=== PATIENT | female | born 1950 | race Caucasian/White ===

== ENCOUNTER 2020-05-12 15:07 | Observation (INO) | payer MEDICARE, BC ==
[~2020-05-12] VITALS: Ht 152.4 cm; Wt 64.7 kg
[~2020-05-12 15:07] MED LIST: AMBIEN CR12.5 M1 PO; AMBIEN CR12.5 MG PO; AMBIEN10 MG OR; AMBIEN5 MG PO; ATORVASTATI80 MG/TAB PO; BENADRYL 25MG C25 MG PO; BUMEX1 M1; BYSTOLIC5 MG; BYSTOLIC5 MG PO; CALCIUM500 M2 PO; CARAFATE PO; CIPROFLOXACN500 MG PO; CITALOPRAM20 MG PO; COMPAZINE10 MG PO; COUMADIN4 MG PO; DEXILANT60 MG PO; EQ IBUPROFEN200 MG OR; FENTANYL50 MCG/HR TD; FLEXERIL PO; FLEXERIL5 M1 PO; HYDROCHLOROT12.5 M1; HYDROCHLOROTH12.5 MG OR; HYDROCODONE/ACE1 TAB PO; HYDROMORPHON8 MG OR; IBUPROFEN200 MG PO; IRON45 MG; LABETALOL200 MG PO; LIPITOR20 M1 PO; LIPITOR20 MG PO; LOPRESSOR50 M1 PO; LORTAB 1010 MG PO; LOSARTAN POT50 MG PO; LOSARTAN POTASS25 MG PO; MEDDOSEPAK PO; METOPROL TAR25 MG PO; MIRTAZAPINE15 M1 PO; MOTRIN IB200 MG PO; MULTI VIT PO; NORCO1 TAB PO; NORVASC5 M1 PO; OXYCODONE10 M1 PO; PHENERGAN25 MG RE; POTASSIMIN75 MG PO; PREMPRO2.5 PO; PRILOSEC20 MG PO; PRILOSEC20 MG/CAP PO; PRILOSEC40 MG PO; PROTONIX40 M2 PO; PROTONIX40 MG PO; REMERON15 MG PO; REMERON45 MG PO; RESTORIL30 MG; RESTORIL30 MG PO; SEROQUEL200 MG PO; SEROQUEL400 MG PO; SINGULAIR PO; TEMAZEPAM30 MG PO; TESSALON PER100 MG PO; TRAMADOL HCL50 MG PO; TRAZODONE50 MG PO; VALIUM5 MG PO; VICODIN1 TA1; VITAMIN D5000 UNIT; ZANTAC150 M1 PO; ZOFRAN ODT4 MG PO; ZOLPIDEM ER12.5 MG PO; [UNRECOGNIZED DRUG - CODE] PO; [UNRECOGNIZED DRUG - REMARK]
--- NOTE | 2020-05-12 15:07 | NUR ---
PPATIENT TO ROOM VIA EMS SMELLS OF ETOH STATES SUICIDAL IDEATIONS TO MD AT BEDSIDE. PATIENT OBTUNDED BUT AROUSABLE AND ANSWERS QUESTIONS CORRECTLY.
--- NOTE | 2020-05-12 15:15 | NUR ---
MEDICAL HOLD PLACED ON [facility] ACT AT THIS TIME BY DR NOLASCO
--- NOTE | 2020-05-12 15:40 | NUR ---
PATIENT UNABLE TO CONFIRM MEDICATIONS DUE TO MENTAL STATE PHARMACY CONSULT PLACED
[2020-05-12 15:47] LABS: HEMOGLOBIN 10.4 g/dl (12.0-16.0); IMMATURE GRANULOCYTES 0.3 % (0.0-5.0); MEAN CELL VOLUME 73.1 fL CALC (80.0-100.0); MEAN CORPUSCULAR HGB 21.7 pG CALC (26.0-32.0); MEAN CORPUSCULAR HGB CONC 29.7 g/dL CAL (32.0-36.0); NEUT# 3.95 thou/uL (2.00-7.15); RED BLOOD COUNT 4.79 mill/uL (4.20-5.60); RED CELL DISTRI WIDTH 20.8 % (11.5-15.5)
[2020-05-12 15:48] LABS: URINE BILIRUBIN - DIPSTICK NEGATIVE (NEGATIVE); URINE BLOOD DIPSTICK NEGATIVE (NEGATIVE); URINE COLOR YELLOW; URINE GLUCOSE - DIPSTICK NEGATIVE (NEGATIVE); URINE KETONE NEGATIVE (NEGATIVE); URINE LEUK ESTERASE NEGATIVE (NEGATIVE); URINE NITRITE - DIPSTICK NEGATIVE (Negative); URINE PROTEIN - DIPSTICK NEGATIVE (NEG-TRACE); URINE UROBILINOGEN - DIPSTICK 0.2 E.U./dL (0.2)
[2020-05-12 16:20] LABS: ACT PARTIAL THROMBO TIME 21.7 SECONDS (20.0-32.5); PROTHROMBIN TIME 9.9 SECONDS (9.0-12.5)
[2020-05-12 16:21] LABS: ALKALINE PHOSPHATASE 83 u/l (38-126); BUN 9 mg/dL (8-23); BUN/CREATININE RATIO 19 (12-20 (CALC)); CARBON DIOXIDE 21 mmol/l (22-30); CHLORIDE 113 mmol/l (95-108); CREATININE 0.5 mg/dL (0.5-1.0); GFR > 60 ML/MIN (>=60 (CALC)); GFR FOR AFR.AMER. > 60 ML/MIN (>=60 (CALC)); LIPASE 29 u/l (23-300); POTASSIUM 4.2 mmol/l (3.5-5.1); SGOT/AST 24 u/l (9-36)
[2020-05-12 16:32] LABS: ALBUMIN 4.2 g/dL (3.2-5.0); ANION GAP 18 (6-22 (CALC)); BILIRUBIN, TOTAL 0.2 mg/dL (0.0-1.4); ETHYL ALCOHOL 372 mg/dl (0-30); SODIUM 148 mmol/l (137-146); TOTAL PROTEIN 6.5 g/dL (6.3-8.2)
--- NOTE | 2020-05-12 16:40 | NUR ---
PATIENT RESTING WITH SITTER. PPATIENT STATING JUST KILL ME I WANT TO NOTIFIEDD
--- NOTE | 2020-05-12 17:20 | NUR ---
SBAR PRINTED TO FLOOR
--- NOTE | 2020-05-12 17:40 | NUR ---
PATIENT RESTING SITTER AT BEDSIDE PATIENT STILL STATING SUICIDAL IDEATIONS
--- NOTE | 2020-05-12 18:58 | NUR ---
W/PP/D SKIN NSR NO ECTOPY NO ST T CHANGES.A/OX3
--- NOTE | 2020-05-12 19:07 | NUR ---
REPORT CALLED TO TOMÁS IN THE ICU
--- NOTE | 2020-05-12 19:15 | NUR ---
PT TRANSPORTED TO [facility] VIA STRETCHER IN STABLE CONDITION
--- NOTE | 2020-05-12 19:28 | NUR ---
pt arrived with emesis bag. has dry heaves & requests water. request denied.
--- NOTE | 2020-05-12 19:28 | NUR ---
76 yr old female admitted icu5 per stretcher from er. hussein act cont. sitter with pt. transferred to bed x2 aqssists. bed weight obtained. pt drowsy. o2 cont per nc. desk monitor shows sinus rhythm hr 72. #20 lfa. ivf began as ordered. pt oriented to name only. history obtained per er & old record. oriented to room. fall precautions initiated.
[2020-05-12 19:30] VITALS: BP 142/73
[2020-05-12 20:00] VITALS: BP 119/72
[2020-05-12 20:15] VITALS: BP 122/57
[2020-05-12 20:30] VITALS: BP 113/72
--- NOTE | 2020-05-12 22:00 | NUR ---
awake. nad. pt has dry heaves, no emesis then requests water. request denied.
--- NOTE | 2020-05-12 23:40 | NUR ---
wilfred from poison control call this brief writer. updated on pts condition. suggested banana bag for pt d/t blood alcohol.
[2020-05-13 00:01] VITALS: BP 146/69
[2020-05-13 02:00] VITALS: BP 160/64
--- NOTE | 2020-05-13 02:00 | NUR ---
awake. requested water then asked for emesis bag. request denied. no emesis or dry heaves @ present. sitter remains @ bedside.
--- NOTE | 2020-05-13 03:00 | NUR ---
up to bsc assisted by sitter then back to bed. yudith well. no n/v or dry heaves. small glass ice water given.
--- NOTE | 2020-05-13 04:52 | NUR ---
lab here. blood drawn.
[2020-05-13 05:34] LABS: HEMATOCRIT 30.8 % (37.0-47.0); HEMOGLOBIN 9.4 g/dl (12.0-16.0); IMMATURE GRANULOCYTES 0.4 % (0.0-5.0); MEAN CELL VOLUME 72.8 fL CALC (80.0-100.0); MEAN CORPUSCULAR HGB 22.2 pG CALC (26.0-32.0); MEAN CORPUSCULAR HGB CONC 30.5 g/dL CAL (32.0-36.0); NEUT# 6.38 thou/uL (2.00-7.15); RED BLOOD COUNT 4.23 mill/uL (4.20-5.60); RED CELL DISTRI WIDTH 20.4 % (11.5-15.5)
[2020-05-13 05:45] LABS: ALBUMIN 3.9 g/dL (3.2-5.0); ALKALINE PHOSPHATASE 72 u/l (38-126); ANION GAP 17 (6-22 (CALC)); BUN 11 mg/dL (8-23); BUN/CREATININE RATIO 29 (12-20 (CALC)); CARBON DIOXIDE 20 mmol/l (22-30); CHLORIDE 111 mmol/l (95-108); CREATININE 0.4 mg/dL (0.5-1.0); GFR > 60 ML/MIN (>=60 (CALC)); GFR FOR AFR.AMER. > 60 ML/MIN (>=60 (CALC)); POTASSIUM 4.4 mmol/l (3.5-5.1); SGOT/AST 27 u/l (9-36); SODIUM 144 mmol/l (137-146); TOTAL PROTEIN 5.8 g/dL (6.3-8.2)
[2020-05-13 05:48] LABS: BILIRUBIN, TOTAL 0.3 mg/dL (0.0-1.4)
[2020-05-13 06:00] VITALS: BP 144/70
--- NOTE | 2020-05-13 06:00 | NUR ---
slept poor this shift. has had few small naps tonight. sitter remains @ bedside.
--- NOTE | 2020-05-13 07:20 | NUR ---
ASSESSMENT IS COMPLETED: IV SITE IS FREE FROM REDNESS OR EDEMA. HR IS REG,PULSE ARE STRONG X4, ABD IS SOFT WITH ACTIVE BS. BREATH SOUNDS ARE CLEAR,BILATERALLY. NO C/O SOB. PT INQUIRED ABOUT PERSONAL BELONGINGS. INFORMED ABOUT COMING WITH AMBULANCE.
--- NOTE | 2020-05-13 08:19 | NUR ---
PT VOIDED 150 ML OF URINE. BLADDER SCAN OF [id number]
--- NOTE | 2020-05-13 08:29 | NUR ---
SISTER CALLING AND INQUIRED. ABOUT PT. IN 2017 DID THE SAME THING. ADDICTED TO [facility]. FOR YEARS. SCHEDULED MEDS. CARE GIVERS. DRANK VODKA. AND TOOK PILLS. BENADRYL FOR ALLEGERIES, SUDAFED. AND OXYCODONE. FAMILY TOOK THE EXTRA 4 PILLS OUT OF THE PACKAGE SO THE PT WOULD NOT TAKE THEM. INCONTINENT OF URINE YESTERDAY, FAMILY CLEANED HER UP. PER SISTER, PTS PASSED 12 YEARS AGO.
--- NOTE | 2020-05-13 08:51 | NUR ---
NEW ORDER FOR A GUERRERO TO BE PLACED DUE TO RETENTION OF UA.
[2020-05-13 09:00] VITALS: BP 161/82
--- NOTE | 2020-05-13 09:55 | NUR ---
#16 [place] GUERRERO PLACED BY Gume NESBITT LPN AND KENNETH ZARATE PT TOELRATED WELL.
[2020-05-13] MEDS ORDERED: LOSARTAN POTASS25 MG PO (10:20)
[2020-05-13] MEDS ORDERED: LABETALOL200 MG PO (10:20)
[2020-05-13] MEDS ORDERED: NORVASC5 M1 PO (10:21)
[2020-05-13] MEDS ORDERED: OXYCODONE10 M1 PO (10:24)
[2020-05-13] MEDS ORDERED: LIPITOR20 M1 PO (10:24)
[2020-05-13 11:00] VITALS: BP 188/81
--- NOTE | 2020-05-13 11:29 | NUR ---
DR GUTHRIE IN TO VISIT WITH PT. IS NOW SPEAKING WITH THE SISTER.
--- NOTE | 2020-05-13 11:37 | NUR ---
PLANS ARE TO SEND PT TO A PSYCH FACILITY. TO ASSIST WITH MEDICATIONS
--- NOTE | 2020-05-13 12:00 | NUR ---
PT IS RELAXING IN BED
--- NOTE | 2020-05-13 12:35 | NUR ---
PT C/O HAVING LOOSSE STOOLS. WOULD LIKE SOMETHING FOR IT. INFORMED BY DR GUTHRIE DIDN'T WANT TO GIVE ANYTHING RIGHT NOW.
[2020-05-13 13:00] VITALS: BP 164/91
--- NOTE | 2020-05-13 14:16 | NUR ---
RECEIVED A CALL FROM STACI ANDERSON [facility]. WILL EVALUATE AND SPEAK TO THE DR THEN WILL GET BACK WITH US.
--- NOTE | 2020-05-13 15:39 | NUR ---
PT INFORMED SITTER CONTINUES WITH PAIN. INFORMED PT PAIN MEDICATION WAS ALREADY GIVEN. CONTINUE TO OBSERVE AND MONITOR.
--- NOTE | 2020-05-13 16:05 | NUR ---
PT CONTINUES TO RELAX IN BED WITH NO DISTRESS NOTED INFORMED OF GUERRERO HAVING TO COME OUT DUE TO DR FEELS IT IS OK . PT TOLERATED WELL. INFORMED DR GUTHRIE OF [facility] ACCEPTING PT AND WAITING ON THE DISCHARGE , AND WILL HAVE TRANSPORT CALLED.
--- NOTE | 2020-05-13 17:00 | NUR ---
[facility] OFFICE NOTIFIED OF TRANSFER TO [place]. IV SITE DISCONTINEUD CATHETER INTACT. NO REDNESS OR EDEMA. BP CUFF AND O2 SAT TAKEN OFF. WAITING ON OFFICERS TO COME
--- NOTE | 2020-05-13 17:35 | NUR ---
NAOMY FROM [facility]. LEFT A AMESSAGE
--- NOTE | 2020-05-13 17:41 | NUR ---
SPOKE WITH JERROD AT [facility]. RE: VOIDING ISSUE WITH PT. AND BEING PICKED UP BY SO. VERBALIZED UNDERSTANDING.
--- NOTE | 2020-05-13 17:59 | NUR ---
BORA SISTER NOTIFIED. OF TRANSFER TO [place].
== END 2020-05-13 17:10 ==
LOC: ED 15:07 → ICU 17:20
PROVIDERS: ADMIT Internal Medicine; ATTEND Internal Medicine
DX: T51.0X2A Toxic effect of ethanol, intentional self-harm, initial encounter (principal); T44.992A Poisoning by other drug primarily affecting the autonomic nervous system, intentional self-harm, initial encounter; T40.2X2A Poisoning by other opioids, intentional self-harm, initial encounter; F10.129 Alcohol abuse with intoxication, unspecified; F11.10 Opioid abuse, uncomplicated; F41.9 Anxiety disorder, unspecified; F32.9 Major depressive disorder, single episode, unspecified; I10 Essential (primary) hypertension; Z91.5 Personal history of self-harm; Z20.828 Contact with and (suspected) exposure to other viral communicable diseases
CPT/HCPCS: J1650

== ENCOUNTER 2020-08-11 16:33 | Observation (INO) | payer MEDICARE, BC ==
[~2020-08-11] VITALS: Ht 154.9 cm; Wt 65.0 kg
--- NOTE | 2020-08-11 16:36 | NUR ---
PATIENT TO ROOM VIA EMS AND PHYSICIAN NOTIFIED OF PATIMILAGRO STATUS
[2020-08-11 18:31] LABS: HEMOGLOBIN 10.3 g/dl (12.0-16.0); IMMATURE GRANULOCYTES 0.5 % (0.0-5.0); MEAN CELL VOLUME 75.9 fL CALC (80.0-100.0); MEAN CORPUSCULAR HGB CONC 30.3 g/dL CAL (32.0-36.0); NEUT# 6.45 thou/uL (2.00-7.15); RED BLOOD COUNT 4.48 mill/uL (4.20-5.60); RED CELL DISTRI WIDTH 17.3 % (11.5-15.5)
[2020-08-11 18:42] LABS: ALKALINE PHOSPHATASE 86 u/l (38-126); AMYLASE 54 u/l (30-110); BUN 13 mg/dL (8-23); BUN/CREATININE RATIO 27 (12-20 (CALC)); CHLORIDE 103 mmol/l (95-108); CREATININE 0.5 mg/dL (0.5-1.0); GFR > 60 ML/MIN (>=60 (CALC)); GFR FOR AFR.AMER. > 60 ML/MIN (>=60 (CALC)); LIPASE 26 u/l (23-300); POTASSIUM 3.9 mmol/l (3.5-5.1); SGOT/AST 31 u/l (9-36); SODIUM 137 mmol/l (137-146)
[2020-08-11 18:45] LABS: ANION GAP 13 (6-22 (CALC)); BILIRUBIN, TOTAL 0.6 mg/dL (0.0-1.4); CARBON DIOXIDE 25 mmol/l (22-30); TOTAL PROTEIN 7.5 g/dL (6.3-8.2)
[2020-08-11 18:54] LABS: MYOGLOBIN 181 ng/mL (0 - 62)
--- NOTE | 2020-08-11 21:08 | NUR ---
PROVIDER AT BEDSIDE AT THIS TIME DISCUSS PLAN OF CARE, HOLD ATIVAN AT THIS TIME CONTINUES TO VOMIT, VOIDED 500 ML
--- NOTE | 2020-08-11 21:15 | NUR ---
RESTING IN BED EYES CLOSED, EASILY AROUSED
[2020-08-11 21:37] LABS: URINE BILIRUBIN - DIPSTICK NEGATIVE (NEGATIVE); URINE BLOOD DIPSTICK TRACE-LYSED (NEGATIVE); URINE COLOR YELLOW; URINE GLUCOSE - DIPSTICK NEGATIVE (NEGATIVE); URINE KETONE 15 mg/dL (NEGATIVE); URINE LEUK ESTERASE NEGATIVE (NEGATIVE); URINE NITRITE - DIPSTICK NEGATIVE (Negative); URINE PROTEIN - DIPSTICK NEGATIVE (NEG-TRACE); URINE UROBILINOGEN - DIPSTICK 0.2 E.U./dL (0.2)
--- NOTE | 2020-08-11 22:02 | NUR ---
PT REQUESTED PAIN MEDICATION AGAIN, PT IS INFORMED THAT NO ORDERS FOR PAIN MED IN PLACE BUT THAT SHE JUST REC'D ATIVAN, VERBALIZES UNDERSTANDING, WILL CONTINUE TO MONITOR.
--- NOTE | 2020-08-11 22:29 | NUR ---
PT RESTING NO DRY HEAVING NOTED FOR LAST FEW MINUTES, PT RESTING WITH EYES CLOSDE, WILL CONTINUE TO MONITOR.
--- NOTE | 2020-08-11 22:43 | NUR ---
REPORT CALLED TO NOAH ZARATE ON MED SURG ROOM 279 ASSINGED NO TELE ORDERED.
[2020-08-11 22:55] VITALS: BP 166/83
--- NOTE | 2020-08-11 22:55 | NUR ---
PT TRANSPORTED TO MED SURG VIA WHEELCAHIOR ALL BELONGINGS WITH PATIENT, RECIEVEING NURSE AT BEDSIDE ON ARRIVAL.
--- NOTE | 2020-08-11 23:55 | NUR ---
PT ARIVED ON FLOOR AT [facility] 2255. ADMISSION COMPLETED WITH PT. SKIN IS PALE AND SLIGHTLY COOL TO THE TOUCH. BREATHING EVEN AND UNLABORED. CARDIAC RHYTHM NAD SOUNDS ARE WNL, NO CARDIAC HISTORY REPORTED. EMS IV TO LFA #20, NS @ 150 ML/HR UNTIL CURRENT BAG IS COMPLETED AND THEN DECREASE FLUIDS TO 100 ML/HR PER ORDER. PULSES PAPABLE BUT WEAK. BS HYPOACTIVE X 4 QUADS. SKIN IS INTACT, NO OPEN AREAS NOTED. DRY HEAVING AND VOMITTING CONTINUES ON ARRIVAL TO THE FLOOR. AMINSTERED ZOFRAN AND MORPHINE IV TO HELP DECREASE SYMPTOMS. PT INDICATED SHE TOOK HER PRESCRIBED PERCOCET YESTERDAY WITH NO DIFFICULTY BUT WAS UNABLE TO KEEP MEDICATIONS DOWN TODAY PER PT. DRUG SCREEN DID NOT SHOW ANY NARCOTICS IN SYSTEM. WILL MONITOR.
--- NOTE | 2020-08-12 02:08 | NUR ---
PT WOKE UP AND BEGAN DRY HEAVING/VOMITTING AGAIN. NURSE ADMINSTERED 1ML OF PHENERGAN IM. AT THIS TIME PT I RESTING UIETLY AGAIN. PT REQUESTED ADDITIONAL PAIN MEDICATIONS. INSTRUCTION WITH PT REGARDING ALTERNATE METHODS OF PAIN RELIEF, INCLUDING, DEEP BREATHING EXERCISES. ADVISED PT THT SHE IS NOT ABLE TO HAVE MORE PAIN MEDICATION UNTIL AROUND [id number]. PT VERBALIZED UNDERSTANDING. WILL MONITOR
--- NOTE | 2020-08-12 04:37 | NUR ---
VOMITTING AND NASUEA CONTINUE. PT RESTING IN BED AT THIS TIME. ZOFRAN ADMINSTERED AT 2339 AND 0351. PHENERGAN WAS GIVEN AT 0151. PT REQUESTING MORE PAIN MEDICATION AND NURSE EXPLAINED TO PT AGAIN THAT IT WAS TOO EARLY AND THAT THIS NURSE WILL BRING HER AN ADDITIONAL DOSE OF MORPHINE AROUND 0600. BREATHING EVEN AND UNLABORED. WILL MONITOR.
[2020-08-12 05:32] VITALS: BP 162/78
--- NOTE | 2020-08-12 07:03 | NUR ---
PT note Patient is screened for PT intervention and no needs are identified at this time
[2020-08-12 07:04] LABS: HEMATOCRIT 34.9 % (37.0-47.0); HEMOGLOBIN 10.4 g/dl (12.0-16.0); MEAN CELL VOLUME 75.7 fL CALC (80.0-100.0); MEAN CORPUSCULAR HGB 22.6 pG CALC (26.0-32.0); MEAN CORPUSCULAR HGB CONC 29.8 g/dL CAL (32.0-36.0); RED BLOOD COUNT 4.61 mill/uL (4.20-5.60); RED CELL DISTRI WIDTH 17.2 % (11.5-15.5)
[2020-08-12 07:30] LABS: ANION GAP 14 (6-22 (CALC)); BUN 9 mg/dL (8-23); BUN/CREATININE RATIO 20 (12-20 (CALC)); CARBON DIOXIDE 22 mmol/l (22-30); CHLORIDE 102 mmol/l (95-108); CREATININE 0.4 mg/dL (0.5-1.0); GFR > 60 ML/MIN (>=60 (CALC)); GFR FOR AFR.AMER. > 60 ML/MIN (>=60 (CALC)); MAGNESIUM 1.7 mg/dL (1.6-2.3); POTASSIUM 3.5 mmol/l (3.5-5.1); SODIUM 133 mmol/l (137-146); TOTAL CHOLESTEROL 185 mg/dl (0-199); TOTAL TRIGLYCERIDES 104 mg/dl (30-149); VLDL CHOLESTROL 21 mg/dl (0-48 (CALC))
[2020-08-12 07:40] VITALS: BP 131/75
[2020-08-12 08:03] VITALS: BP 131/75
--- NOTE | 2020-08-12 08:20 | NUR ---
PT RESTING IN THE BED, AXOX3. IV INFUSING. PT DENIES NAUSEA ,VOMITING. C/O SLIGHT BACK PAIN, MED PER ORDER. REPOSITIONED FOR COMFORT, SIDE RAILS UP CALL LIGHT IN REACH, BED LOCKED IN LOW POSITION, ALL SAFTY MEASURES IN PLACE. WILL CONTINUE TO MONIOTR THE PATIENT.
[2020-08-12 10:04] LABS: CALCULATED LDLCHOLESTEROL 94 mg/dL (62-129 (CALC)); CHOLESTEROL HDL RATIO 2.6 (<4.4 (CALC)); HDL CHOLESTEROL 70 mg/dL (>=40)
--- NOTE | 2020-08-12 10:23 | NUR ---
C/O PAIN MED PER ORDER, WILL CONTINUE TO MONIOTR THE PATIENT.
--- NOTE | 2020-08-12 10:41 | NUR ---
PT RESTING COMFORTABLE NO DISTRESS NOTED AT THIS TIME.
--- NOTE | 2020-08-12 11:21 | NUR ---
PT RESTING COMOFTALE NO DISTRESS NOTED AT THIS TIME.
[2020-08-12] MEDS ORDERED: PROTONIX40 M2 PO (11:29)
[2020-08-12] MEDS ORDERED: ZOFRAN4 MG/TAB PO (11:30)
--- NOTE | 2020-08-12 12:10 | NUR ---
PT ANNA CLEAR LIQUIDS WELL. NO C/O NAUSEA NO C/O PAIN. CALL LIGHT IN REACH WILL CONTINUE TO MONITOR THE PATIENT.
--- NOTE | 2020-08-12 14:27 | NUR ---
PT HAS AN ORDER TO BE DISCHARGED TO HOME.
--- NOTE | 2020-08-12 14:42 | NUR ---
DISCHARGE ODERS GIVEN UNDERSTOOD AND SIGNED BY THE PT. PT LEFT VIA TAXI TO GO TO HER OWN HOME.
== END 2020-08-12 14:41 | disposition home or self-care (01) ==
LOC: ED 16:33 → ED-I 21:33 → ED 21:46 → MS2 21:47
PROVIDERS: Emergency Medicine; Nurse Practitioner; ADMIT Internal Medicine; ATTEND Internal Medicine
DX: R11.2 Nausea with vomiting, unspecified (principal); R10.13 Epigastric pain; I10 Essential (primary) hypertension; F10.10 Alcohol abuse, uncomplicated; M54.9 Dorsalgia, unspecified; G89.29 Other chronic pain; Z79.891 Long term (current) use of opiate analgesic; Z20.822 Contact with and (suspected) exposure to COVID-19
CPT/HCPCS: G0378; J1650; J2060; Q9967; S0164